=== PATIENT | male | born 1965 | race Caucasian/White ===

== ENCOUNTER 2024-01-17 15:19 | Emergency (ER) | payer OTHER, SELFPAY ==
--- NOTE | ~2024-01-17 | CT_ITS ---
EXAMINATION: CT ABDOMEN AND PELVIS WITH CONTRAST CLINICAL INFORMATION: Lower abdominal pain question diverticulitis COMPARISON: CT abdomen from 04/22/2010 TECHNIQUE: Multidetector volumetric images were obtained from the superior aspect of the liver through the pubic symphysis following administration 85 mL of Omnipaque 350 intravenous contrast. Sagittal and coronal reformatted images were obtained on the technologist's workstation. Oral contrast: No This CT examination was performed using dose optimization techniques as appropriate, variously including the following: *Automated exposure control *Adjustment of mA and/or kV according to patient size (this includes techniques or standardized protocols for targeted exams where dose is matched to indication/reason for exam; i.e. extremities or head) *Use of iterative reconstruction technique DLP: 460 mGy-cm FINDINGS: LUNG BASES: Bibasilar atelectasis. No pneumothorax. No large pleural effusion. Slight elevation right hemidiaphragm. LIVER, GALLBLADDER, AND BILIARY TREE: The liver is normal in size, shape, and attenuation. Hypodense focus adjacent to gallbladder fossa demonstrating fluid attenuation statistically representing cyst. No focal hepatic lesion or biliary ductal dilatation is present. The gallbladder is unremarkable with no evidence of radiopaque gallstones, gallbladder wall thickening, or obvious pericholecystic inflammatory changes. PANCREAS: Unremarkable. SPLEEN: Unremarkable. ADRENAL GLANDS: Unremarkable. KIDNEYS AND URETERS: Left-sided nephrolithiasis measuring up to 3 mm without hydronephrosis. No right-sided nephrolithiasis or hydronephrosis BLADDER: Unremarkable. GASTROINTESTINAL TRACT: Colonic diverticulosis with wall thickening and prominent pericolonic inflammatory changes and fluid involving the sigmoid colon compatible with diverticulitis. The small and large bowel are unremarkable. The appendix is unremarkable. ABDOMINAL WALL: No significant hernia is appreciated. LYMPH NODES: No enlarged lymph nodes per size criteria. VASCULAR: Abdominal aorta is nonaneurysmal. PELVIC VISCERA: Prostate measures 4.3 x 4.6 cm. OSSEOUS STRUCTURES: Multilevel degenerative changes of the thoracolumbar lumbosacral spine greatest at L2-L3. CT/CT abdomen pelvis w IV con IMPRESSION: 1. Colonic diverticulosis with wall thickening and prominent pericolonic inflammatory changes and fluid involving the sigmoid colon compatible with diverticulitis. 2. Left-sided nephrolithiasis measuring up to 3 mm without hydronephrosis. 3. Hypodense focus adjacent to gallbladder fossa demonstrating fluid attenuation statistically representing cyst.
[2024-01-17 15:21] VITALS: BP 120/79; PULSE 87; RESP 16; TEMP 36.9; O2SAT 97; BMI 28.2
--- NOTE | 2024-01-17 15:33 | ECG_ITS ---
Test Reason : ABDOMINAL PAIN Blood Pressure : / mmHG Vent. Rate : 091 BPM Atrial Rate : 091 BPM P-R Int : 150 ms QRS Dur : 082 ms QT Int : 350 ms P-R-T Axes : 041 011 024 degrees QTc Int : 430 ms Normal sinus rhythm Normal ECG No previous ECGs available Referred By: Dean Bynum Electronically Signed By:NAFISA TATUM MD
--- NOTE | 2024-01-17 15:35 | ED_ITS ---
HPI - General Adult General Chief complaint: Abdominal Pain Stated complaint: cramp, possible diverticulitis Time Seen by Provider: 01/17/24 16:12 Source: patient Mode of arrival: ambulatory Limitations: no limitations History of Present Illness ED Provider: jama CINTRON narrative: Patient is a kidney stone and diverticulitis past comes here for increased pain since emergency doctor in lower abdomen pain is more localized in the mid lower abdomen patient had a vasovagal syncope episode while going to the bathroom because of pain was very nauseated no fever no chills did not move his bowels today does feel hungry did not eat anything all day today Related Data Previous Rx's ?Medication ?Instructions ?Recorded ciprofloxacin HCl 500 mg tablet 500 mg PO BID #20 tabs 01/17/24 (Cipro) ibuprofen 600 mg tablet 600 mg PO Q6H PRN fever or pain 01/17/24 #30 tabs metronidazole 500 mg tablet 500 mg PO TID #30 tabs 01/17/24 Allergies Allergy/AdvReac Type Severity Reaction Status Date / Time erythromycin base Allergy Severe NAUSEA/VOMI Verified 01/17/24 15:27 [ERYTHROMYCIN BASE] TING Review of Systems 2 Review of Systems: Yes all other systems are reviewed and are negative [facility] Social History Social History Alcohol intake: current Alcohol intake frequency: a few times a week Alcohol type: hard liquor Smoked in Last 30 Days: No Use of substances other than those prescribed or required for medical reasons: No Advance Directives: No Advance Directives Information Provided: No Do you have a plan to hurt others: No Plan Physical Exam ED Vital Signs: Vital Signs - 24 hr 01/17/24 15:21 01/17/24 16:04 01/17/24 18:18 Temperature 98.5 F 98.1 F 98.3 F Pulse Rate 87 91 87 Respiratory Rate 16 16 16 Blood Pressure 120/79 130/87 133/78 Pulse Oximetry 97 97 97 Oxygen Delivery Method Room Air Room Air 01/17/24 19:19 01/17/24 19:33 Temperature 98.1 F 98.1 F Pulse Rate 84 84 Respiratory Rate 14 14 Blood Pressure 134/85 134/85 Pulse Oximetry 97 97 Oxygen Delivery Method Room Air Room Air BMI result Body Mass Index 28.2 Appearance: Alert. Oriented X3. No acute distress. Eyes: No pallor or icterus ENT: Pharynx normal. Oral Mucosa moist Neck: Normal inspection. Neck supple. CVS: Normal heart rate and rhythm. Pulses normal. Respiratory: No respiratory distress. Equal air entry bilateral, no wheezing/rales/rhonchi Abdomen: Soft , deep tenderness suprapubic area with guarding no rebound tenderness Bowel sounds are present, no mass palpable, no CVA tenderness Skin: Skin warm and dry. Normal skin color. Normal skin turgor. Extremities: No lower extremity edema. No calf tenderness Neuro: Oriented X 3. No motor deficit. No sensory deficit.No cerebellar signs , cranial nerves II-XII intact Course Course Course Narrative: RME: DOne by SUDHIR Bynum. Patient presents to ED for generalized abdominal cramping that is tender on palpation. Patient states history of diverticulitis and kidney stones. Patient states also syncopal episode. Patient present denies any chest pain shortness of breath is abdominal pain. Labs EKG ordered Medications Administered Discontinued Medications Generic Name Dose Route Start Last Admin Trade Name Freq PRN Reason Stop Dose Admin Sodium Chloride 1,000 mls @ 999 mls/hr 01/17/24 16:33 01/17/24 19:06 Ns IV 01/17/24 17:33 Infused .Q1H1M ONE Infusion Piperacillin Sod/Tazobactam 50 mls @ 100 mls/hr 01/17/24 17:07 01/17/24 18:30 Sod 3.375 gm/ Sodium Chloride IV 01/17/24 17:36 Infused ONCE ONE Infusion Iohexol 85 ml 01/17/24 18:25 01/17/24 18:25 Iohexol 350 Mg/Ml 100 Ml Infus..Btl IV 01/17/24 18:26 85 ml ONCE ONE Administration Morphine Sulfate 4 mg 01/17/24 16:33 01/17/24 17:08 Morphine Sulfate 4 Mg/Ml Cartridge IVPUSH 01/17/24 16:34 4 mg ONCE ONE Administration Protocol Ondansetron HCl 4 mg 01/17/24 16:34 01/17/24 17:08 Ondansetron Hcl 4 Mg/2 Ml Vial IVPUSH 01/17/24 16:35 4 mg ONCE ONE Administration Medical Decision Making Medical Decision Making MDM Narrative: Patient with left lower abdominal pain workup showed uncomplicated diverticulitis patient received Zosyn will discharge patient on Cipro and Flagyl advised to follow up as outpatient Differential Diagnosis Differential Diagnoses: The differential diagnosis associated with the presentation includes Diverticulitis/appendicitis/cystitis Admission/Observation Consideration of admission/observation: Escalation of care including admission/observation considered Lab Data MDM Lab Attestation statement: I reviewed the patient's lab results. 01/17/24 15:43 01/17/24 15:43 Labs: Lab Results 01/17/24 01/17/24 01/17/24 Range/Units 15:43 15:52 16:48 WBC 15.2 H (4.8-10.8) X10*3/uL RBC 5.00 (4.60-5.80) X10*6/uL Hgb 15.0 (14.0-18.0) g/dl Hct 43.4 (42.0-52.0) % MCV 86.8 (80.0-98.0) fL MCH 30.0 (27.0-33.0) pg MCHC 34.6 (31.0-36.0) g/dl RDW 13.0 (11.0-16.0) % Plt Count 253 (160-400) X10*3/uL MPV 9.4 (9.4-12.4) fL Immature Gran % (Auto) 0.3 (0.0-0.4) % Neut % (Auto) 79.8 H (45-73) % Lymph % (Auto) 10.0 L (20-40) % [place] % (Auto) 8.7 (2-11) % Eos % (Auto) 0.7 (0-4) % Baso % (Auto) 0.5 (0-2) % Lymph # (Auto) 1.5 (1.2-4.9) X10*3/uL [place] # (Auto) 1.3 H (0.1-1.2) X10*3/uL Eos # (Auto) 0.1 (0.0-0.4) X10*3/uL Baso # (Auto) 0.1 (0.0-0.2) X10*3/uL Abs Immat Gran (auto) 0.04 H (0.00-0.03) X10*3/uL Absolute Neuts (auto) 12.1 H (2.0-8.3) x10*3/uL Absolute Nucleated RBC 0.000 (0.0-0.012) X10*3/uL Nucleated RBC % (auto) 0.0 (0.0-0.2) /100WBC PT 12.4 (11.1-13.3) SEC INR 1.0 (0.9-1.1) APTT 31.7 (26.0-36.8) SEC Sodium 141 (135-145) mmol/L Potassium 4.4 (3.3-5.1) mmol/L Chloride 104 (96-108) mmol/L Carbon Dioxide 25 (22-29) mmol/L Anion Gap 16 (12-20) BUN 14 (9-16) mg/dL Creatinine 0.86 (0.5-1.4) mg/dL Estim Creat Clear Calc 94.6 Estimated GFR > 60 Random Glucose 110 (60-115) mg/dL Lactic Acid 1.2 (0.5-2.0) mmol/L Calcium 9.8 (8.4-10.2) mg/dL Total Bilirubin 1.2 H (0.0-1.0) mg/dL AST 20 (5-37) U/L ALT 28 (0-40) U/L Alkaline Phosphatase 126 H (39-117) U/L Troponin I High Sens < 2.7 (<3.5-35.0) ng/L Total Protein 7.8 (6.5-8.0) g/dL Albumin 4.4 (3.5-5.0) g/dL Urine Color Yellow Urine Appearance Clear Urine pH 7.0 (5.0-9.0) Ur Specific [place] <= 1.005 (1.005-1.025) Urine Protein Negative (Neg-Trace) mg/dL Urine Glucose (UA) Negative (Negative) mg/dL Urine Ketones Negative (Negative) mg/dL Urine Blood Trace H (Negative) Urine Nitrite Negative (Negative) Ur Leukocyte Esterase Negative (Negative) Urine RBC 0-2 (0-2) /HPF Urine WBC 0-5 (0-5) /HPF Ur Squamous Epith Cells 0-2 (0-2) /HPF Urine Bacteria None Seen (None Seen) Hyaline Casts 0-2 (0-2) /LPF 01/17/24 Range/Units 17:14 WBC (4.8-10.8) X10*3/uL RBC (4.60-5.80) X10*6/uL Hgb (14.0-18.0) g/dl Hct (42.0-52.0) % MCV (80.0-98.0) fL MCH (27.0-33.0) pg MCHC (31.0-36.0) g/dl RDW (11.0-16.0) % Plt Count (160-400) X10*3/uL MPV (9.4-12.4) fL Immature Gran % (Auto) (0.0-0.4) % Neut % (Auto) (45-73) % Lymph % (Auto) (20-40) % [place] % (Auto) (2-11) % Eos % (Auto) (0-4) % Baso % (Auto) (0-2) % Lymph # (Auto) (1.2-4.9) X10*3/uL [place] # (Auto) (0.1-1.2) X10*3/uL Eos # (Auto) (0.0-0.4) X10*3/uL Baso # (Auto) (0.0-0.2) X10*3/uL Abs Immat Gran (auto) (0.00-0.03) X10*3/uL Absolute Neuts (auto) (2.0-8.3) x10*3/uL Absolute Nucleated RBC (0.0-0.012) X10*3/uL Nucleated RBC % (auto) (0.0-0.2) /100WBC PT (11.1-13.3) SEC INR (0.9-1.1) APTT (26.0-36.8) SEC Sodium (135-145) mmol/L Potassium (3.3-5.1) mmol/L Chloride (96-108) mmol/L Carbon Dioxide (22-29) mmol/L Anion Gap (12-20) BUN (9-16) mg/dL Creatinine (0.5-1.4) mg/dL Estim Creat Clear Calc Estimated GFR Random Glucose (60-115) mg/dL Lactic Acid 0.2 L (0.5-2.0) mmol/L Calcium (8.4-10.2) mg/dL Total Bilirubin (0.0-1.0) mg/dL AST (5-37) U/L ALT (0-40) U/L Alkaline Phosphatase (39-117) U/L Troponin I High Sens (<3.5-35.0) ng/L Total Protein (6.5-8.0) g/dL Albumin (3.5-5.0) g/dL Urine Color Urine Appearance Urine pH (5.0-9.0) Ur Specific [place] (1.005-1.025) Urine Protein (Neg-Trace) mg/dL Urine Glucose (UA) (Negative) mg/dL Urine Ketones (Negative) mg/dL Urine Blood (Negative) Urine Nitrite (Negative) Ur Leukocyte Esterase (Negative) Urine RBC (0-2) /HPF Urine WBC (0-5) /HPF Ur Squamous Epith Cells (0-2) /HPF Urine Bacteria (None Seen) Hyaline Casts (0-2) /LPF Independent Interpretation I performed an independent interpretation of an: CT Scan Interpretation: [place] [id number] CT Scan Report Signed Patient: Adrian Hadley MR#: [id number] : 1965 Acct:[id number] Age/Sex: 58 / M ADM Date: 01/17/24 Loc: .ED Attending Dr: Ordering Physician: Howie Emery MD Date of Service: 01/17/24 Procedure(s): CT abdomen pelvis w IV con Accession Number(s): [id number] cc: Jim Nicole III, MD; Howie Emery MD~ EXAMINATION: CT ABDOMEN AND PELVIS WITH CONTRAST CLINICAL INFORMATION: Lower abdominal pain question diverticulitis COMPARISON: CT abdomen from 04/22/2010 TECHNIQUE: Multidetector volumetric images were obtained from the superior aspect of the liver through the pubic symphysis following administration 85 mL of Omnipaque 350 intravenous contrast. Sagittal and coronal reformatted images were obtained on the technologist's workstation. Oral contrast: No This CT examination was performed using dose optimization techniques as appropriate, variously including the following: *Automated exposure control *Adjustment of mA and/or kV according to patient size (this includes techniques or standardized protocols for targeted exams where dose is matched to indication/reason for exam; i.e. extremities or head) *Use of iterative reconstruction technique DLP: 460 mGy-cm FINDINGS: LUNG BASES: Bibasilar atelectasis. No pneumothorax. No large pleural effusion. Slight elevation right hemidiaphragm. LIVER, GALLBLADDER, AND BILIARY TREE: The liver is normal in size, shape, and attenuation. Hypodense focus adjacent to gallbladder fossa demonstrating fluid attenuation statistically representing cyst. No focal hepatic lesion or biliary ductal dilatation is present. The gallbladder is unremarkable with no evidence of radiopaque gallstones, gallbladder wall thickening, or obvious pericholecystic inflammatory changes. PANCREAS: Unremarkable. SPLEEN: Unremarkable. ADRENAL GLANDS: Unremarkable. KIDNEYS AND URETERS: Left-sided nephrolithiasis measuring up to 3 mm without hydronephrosis. No right-sided nephrolithiasis or hydronephrosis BLADDER: Unremarkable. GASTROINTESTINAL TRACT: Colonic diverticulosis with wall thickening and prominent pericolonic inflammatory changes and fluid involving the sigmoid colon compatible with diverticulitis. The small and large bowel are unremarkable. The appendix is unremarkable. ABDOMINAL WALL: No significant hernia is appreciated. LYMPH NODES: No enlarged lymph nodes per size criteria. VASCULAR: Abdominal aorta is nonaneurysmal. PELVIC VISCERA: Prostate measures 4.3 x 4.6 cm. OSSEOUS STRUCTURES: Multilevel degenerative changes of the thoracolumbar lumbosacral spine greatest at L2-L3. CT/CT abdomen pelvis w IV con IMPRESSION: 1. Colonic diverticulosis with wall thickening and prominent pericolonic inflammatory changes and fluid involving the sigmoid colon compatible with diverticulitis. 2. Left-sided nephrolithiasis measuring up to 3 mm without hydronephrosis. 3. Hypodense focus adjacent to gallbladder fossa demonstrating fluid attenuation statistically representing cyst. Radiology Impression Discussion of test interpretation with radiology: I have reviewed the radiologist's reading. Discharge Plan Discharge Clinical Impression: Diverticulitis Patient Disposition: Home, Self-Care Instructions: Diverticulitis (ED) Additional Instructions: Clear liquids advanced slowly as tolerated Antibiotic as prescribed Take ibuprofen for pain Report to the ER if worsening of the pain/fever/blood in his stool Follow up with PCP/quality assurance consultant Prescriptions: New ciprofloxacin HCl [Cipro] 500 mg tablet 500 mg PO BID Qty: 20 0RF metronidazole 500 mg tablet 500 mg PO TID Qty: 30 0RF ibuprofen 600 mg tablet 600 mg PO Q6H PRN (Reason: fever or pain) Qty: 30 0RF Interventions: ED Discharge Assessment Last Done: 01/17/24 19:33 Discharge Date/Time: 01/17/24 19:34 Print Language: [place]
[2024-01-17 15:57] LABS: MANUAL DIFF FLAG NO
[2024-01-17 16:04] VITALS: BP 130/87; PULSE 91; RESP 16; TEMP 36.7; O2SAT 97
[2024-01-17 16:04] LABS: Basophils Absolute Auto 0.1 X10*3/uL (0.0-0.2); Basophils Percent Auto 0.5 % (0-2); Eosinophils Absolute Auto 0.1 X10*3/uL (0.0-0.4); Eosinophils Percent Auto 0.7 % (0-4); Hematocrit 43.4 % (42.0-52.0); Imm Gran Abs Auto 0.04 X10*3/uL (0.00-0.03); Imm Gran Pct Auto 0.3 % (0.0-0.4); Lymphocytes Absolute Auto 1.5 X10*3/uL (1.2-4.9); Mean Corpuscular HGB Conc 34.6 g/dl (31.0-36.0); Mean Corpuscular Volume 86.8 fL (80.0-98.0); Mean Platelet Volume 9.4 fL (9.4-12.4); Monocytes Absolute Auto 1.3 X10*3/uL (0.1-1.2); Monocytes Percent Auto 8.7 % (2-11); Neutrophils Absolute Auto 12.1 x10*3/uL (2.0-8.3); Neutrophils Percent Auto 79.8 % (45-73); Platelet Count 253 X10*3/uL (160-400); White Blood Count 15.2 X10*3/uL (4.8-10.8)
[2024-01-17 16:07] LABS: Appearance Urine Clear; Color Urine Yellow; Glucose Urine UA Negative (Negative); Leukocyte Esterase Urine Negative (Negative); Nitrite Urine Negative (Negative); Specific Gravity - Urine <= 1.005 (1.005-1.025); UMIC TRIGGER UACC YES; Urine Blood Trace (Negative); Urine Ketones Negative (Negative); Urine Protein Negative (Neg-Trace)
[2024-01-17 16:09] LABS: Prothrombin Time 12.4 SEC (11.1-13.3)
[2024-01-17 16:12] LABS: Partial Thromboplastin Time 31.7 SEC (26.0-36.8)
[2024-01-17 16:14] LABS: Alanine Aminotransferase 28 U/L (0-40); Albumin Level 4.4 g/dL (3.5-5.0); Alkaline Phosphatase 126 U/L (39-117); Anion Gap 16 (12-20); Aspartate Amino Transferase 20 U/L (5-37); Bilirubin Total 1.2 mg/dL (0.0-1.0); Blood Urea Nitrogen 14 mg/dL (9-16); Calcium 9.8 mg/dL (8.4-10.2); Carbon Dioxide 25 mmol/L (22-29); Chloride 104 mmol/L (96-108); Creatinine Clr Calc Pharmacy 94.6; Estimated Glomerular Filt Rate > 60; Glucose Random 110 mg/dL (60-115); Potassium 4.4 mmol/L (3.3-5.1); Sodium 141 mmol/L (135-145); Total Protein 7.8 g/dL (6.5-8.0)
[2024-01-17 16:14] LABS: Bacteria Urine None Seen (None Seen); Hyaline Casts Urine 0-2 /LPF (0-2); RBC Urine 0-2 /HPF (0-2); Squamous Epithelial Cell Urine 0-2 /HPF (0-2); WBC Urine 0-5 /HPF (0-5)
[2024-01-17 16:21] LABS: Troponin-I High Sensitivity < 2.7 ng/L (<3.5-35.0)
[2024-01-17 17:04] LABS: Lactic Acid 1.2 mmol/L (0.5-2.0)
[2024-01-17] MEDS: Morphine Sulfate 4 MG/ML CARTRIDGE IVPUSH (17:08)
[2024-01-17] MEDS: ondansetron HCL 4 MG/2 ML VIAL IVPUSH (17:08)
[2024-01-17] MEDS: 0.9 % Sodium Chloride 1,000 ML 999 ML IV (17:19)
[2024-01-17] MEDS: Piperacillin Sodium/Tazobactam 3.375 GM in 0.9 % Sodium Chloride 50 ML IV (17:19)
[2024-01-17 17:29] LABS: Lactic Acid 0.2 mmol/L (0.5-2.0)
[2024-01-17 18:18] VITALS: BP 133/78; PULSE 87; RESP 16; TEMP 36.8; O2SAT 97
[2024-01-17] MEDS: iohexoL 350 MG/ML 100 ML INFUS..BTL 85 ML IV (18:25)
[2024-01-17 19:19] VITALS: BP 134/85; PULSE 84; RESP 14; TEMP 36.7; O2SAT 97
[2024-01-17 19:33] VITALS: BP 134/85; PULSE 84; RESP 14; TEMP 36.7; O2SAT 97
== END 2024-01-17 19:34 | disposition home or self-care (01) ==
PROVIDERS: Physician Assistant; Emergency Provider Internal Medicine; PCP Internal Medicine
DX: R10.30 Lower abdominal pain, unspecified (principal); K57.32 Diverticulitis of large intestine without perforation or abscess without bleeding
CPT/HCPCS: 36415; 74177; 80053; 81001; 81003; 83605; 84484; 85025; 85610; 85730; 93005; 96361; 96374; 96375; 99284; 99285; J2270; J2405; J2543; Q9967

== ENCOUNTER → 2024-01-17 15:33 | Outpatient (BNV) | payer OTHER, SELFPAY | PROVIDERS: Emergency Provider Internal Medicine; PCP Internal Medicine; Visit Provider Internal Medicine Cardiovascular Disease | DX: R10.9 Unspecified abdominal pain (principal) | CPT/HCPCS: 93010 ==

== ENCOUNTER 2025-03-14 16:14 | Outpatient (AMB) | payer OTHER, SELFPAY ==
--- OUTSIDE RECORDS SUMMARY | 2025-03-14 17:37 | XMS_ITS | Clinical Summary ---
Author Organization [facility] [address] [facility] Address [address] [place] [address] Phone Care Team Providers Care Mat Weaver Name Role Phone Darryl Nina MD Primary Care Provider Allergies Active Allergy Reactions Criticality Noted Date Comments Erythromycin Nausea And Vomiting 11/30/2005 Sulfamethoxazole-Trimet hoprim Medium 12/21/2012 Other Reaction(s): Hives/Urticaria Vs. Sunscreen Rxn? Medications omeprazole (PriLOSEC) [address] capsule TAKE 1 CAPSULE BY MOUTH DAILY TAKE 20 MINUTES BEFORE BREAKFAST ON AN EMPTY STOMACH 0 Active fexofenadine (STEPHANIE) 180 mg tablet Take 1 Tab by mouth daily. 8 Active UNABLE TO FIND Inject as directed once a week. Active multivitamin with minerals tablet Take 1 tablet by mouth 1 (one) time each day. Active Active Problems Problem Noted Date Diagnosed Date Family history of prostate cancer 06/28/2024 Assessment & Plan (06/28/2024 8:55 AM EST): Follows with urology and up-to-date with prostate exam and PSA. Diverticulosis 02/09/2024 Elevated bilirubin 02/09/2024 Leukocytosis 02/09/2024 Nephrolithiasis 11/16/2017 Overview (05/12/2024): Left renal calculus, ultrasound 09/09/2017 Hyperlipidemia 06/25/2016 Overview (05/12/2024): Cholesterol 242, 06/25/2016 IFG (impaired fasting glucose) 06/25/2016 Overview (05/12/2024): Glucose 107, 06/25/2016 Eosinophilic esophagitis 08/21/2006 Overview (05/12/2024): EGD plus esophageal biopsies, 18 August 2006, consistent with eosinophilic esophagitis. Carpal tunnel syndrome 05/28/2006 Ulnar nerve compression 05/28/2006 Overview (05/12/2024): ulnar nerve wrist compression Allergic rhinitis 11/30/2005 Overview (05/12/2024): cause unspecified Chronic diarrhea 11/30/2005 Overview (05/12/2024): Colonoscopy, colonoscopic biopsies, EGD, duodenal biopsies, all negative/normal 7.11.00. chronic minor hematochezia. Immunizations Name Administration Dates Next Due COVID-19 (Moderna/Spikevax) 12yo and older 07/09 Influenza trivalent, MDCK, 0 .5mL, with preservative (Flucelvax) 6mo and older 04/26/2024 Influenza, Unspecified 05/03/2021 Pfizer (ages 12 & older) Bivalent, COVID-19 06/26 Pfizer SARS-CoV-2 COVID-19, mRNA, LNP-S, preservative free 07/24/2021,12/02/2020,11/11/2020 Td Tetanus diptheria (Tdvax) 7yo and older 02/26 Td, Unspecified 04/18/2001 Tdap Tetanus diptheria acell ular pertussis (Boostrix; Adacel) 7yo and older 11/25/2011 Zoster recombinant (Shingrix ) 19yo and older 12/04/2023,09/29/2023 Surgical History Surgery Date Site/Laterality Comments ESOPHAGOGASTRODUODENOSCOPY 08/18/2006 PROCEDURE: ID EGD TRANSORAL BIOPSY SINGLE/MULTIPLE; COMMENT: eosinophilic esophagitis COLONOSCOPY 02/04/2000 PROCEDURE: HISTORICAL COLONOSCOPY; COMMENT: negative ESOPHAGOGASTRODUODENOSCOPY 02/04/2000 PROCEDURE: ID EGD TRANSORAL BIOPSY SINGLE/MULTIPLE; COMMENT: duodenal bx wnl MULTIPLE TOOTH EXTRACTIONS PROCEDURE: HISTORICAL DENTAL EXTRACTION COLONOSCOPY 05/24/2010 PROCEDURE: HISTORICAL COLONOSCOPY; COMMENT: Normal OTHER SURGICAL HISTORY 09/25/2011 PROCEDURE: ID ESOPHAGOSCOPY FLEXIBLE TRANSORAL DIAGNOSTIC; COMMENT: EOE and mild erosive esophagitis at the EGJ. OTHER SURGICAL HISTORY 09/25/2011 PROCEDURE: ID DILATION ESOPH UNGUIDED SOUND/BOUGIE 1/MULT PASS; COMMENT: 40 Fr Brooks OTHER SURGICAL HISTORY 07/27/2015 PROCEDURE: ---- OTHER ----; COMMENT: deviated septum NASAL SEPTUM SURGERY PROCEDURE: ID SEPTOPLASTY/SUBMUCOUS RESECJ W/WO CARTILAGE GRF; COMMENT: 2017 Medical History Medical History Date Comments Allergic rhinitis, cause unspecified 11/30/2005 DX:Allergic rhinitis, cause unspecified Diarrhea 11/30/2005 DX:Diarrhea Family history of colonic polyps 08/05/2006 DX:Family history of colonic polyps; COMMENT: father with diagnosis of colonic polyps approximately age 60 or older. Eosinophilic esophagitis 08/21/2006 DX:Eosi nophilic esophagitis; COMMENT: EGD plus esophageal biopsies, 18 August 2006, consistent with eosinophilic esophagitis. Family History Medical History Relation Name Comments Heart attack Aunt - age 73; heart attack Colon polyps Father dx at age > 60; 4 benign polyps Hypertension Father Other cancer Father skin Prostate cancer Father also 4 benig n colon polyps Other: Other Maternal Grandfather ? cause of at 47; surg complication Stroke Maternal Grandmother in her 80s Stroke Mother Uterine cancer Mother uterine cance r at 47 Lymphoma Other 1 gr aunt Colon cancer Other 2 2nd cousin Stomach cancer Paternal Grandfather at 57 of stomach cancer Alzheimer's disease Paternal Grandmother in her 80s; heart attack at 86 Alzheimer's disease Uncle 1 paternal uncle # 1 -Alzheimer's Prostate cancer Uncle 2 paternal unc le #1 Relation Name Status Comments Aunt Father Maternal Grandfather Maternal Grandmother Mother Other 1 Other 2 Paternal Grandfather Paternal Grandmother Uncle 1 Uncle 2 Social History Tobacco Use Types Packs/Day Years Used Date Smoking Tobacco: Never Smokeless Tobacco: Never Alcohol Use Standard Drinks/Week Comments Yes 4 (1 standard drink = 0.6 oz pur e alcohol) 4 bourbons or beer 4 weekly Sex and Gender Information Value Date Recorded Sex Assigned at Not on file Legal Sex Male 3:44 PM EST Gender Identity Not on file Sexual Orientation Not on file Obstetrics History Last Filed Vital Signs Vital Sign Reading Time Taken Comments Blood Pressure 112/70 06/28/2024 8:20 AM EST Pulse 82 06/28/2024 8:20 AM EST Temperature 36.5 C (97.7 F) 06/28/2024 8:20 AM EST Respiratory Rate 14 06/28/2024 8:20 AM EST Oxygen Saturation 98% 06/28/2024 8:20 AM EST Inhaled Oxygen Concentration - - Weight 74.8 kg (164 lb 12.8 oz) 06/28/2024 8:20 AM EST Height 167.6 cm (5' 6 ) 06/28/2024 8:20 AM EST Body Mass Index 26.6 06/28/2024 8:20 AM EST Plan of Treatment Health Maintenance Due Date Last Done Comments Pneumococcal Vaccine: 50+ Years (1 of 1 - PCV) 2014 Social Influencers of Health Screening 06/25/2022 COVID-19 Vaccine ( season) 2024 09/29/2023, 07/09/2022, 07/09/2022, Additional history exists Depression Screening 07/27/2024 Influenza Vaccine (#1) 2025 , 05/21/2022, 05/03/2021 Cholesterol Screening (Lipid Panel) 06/28/2029 06/28/2024, 09/12/2021 Colorectal Cancer Screening: Colonoscopy 11/15/2031 11/14/2021 DTaP,Tdap,and Td Vaccines (4 - Td or Tdap) 02/27/2032 02/26/2022, 11/25/2011, 04/18/2001 RSV Immunization Adult Patients (1 - 1-dose 75+ series) 2039 HIV Screening Completed 08/12/2010 Hepatitis C Screening Completed 01/08/2013 Zoster Vaccines Completed 12/04/2023, 09/29/2023 HIB Vaccines Aged Out No longer eligi ble based on patient's age to complete this topic HPV Vaccines Aged Out No longer eligi ble based on patient's age to complete this topic Hepatitis A Vaccines Aged Out No long er eligible based on patient's age to complete this topic Hepatitis B Vaccines Aged Out No long er eligible based on patient's age to complete this topic IPV Vaccines Aged Out No longer eligi ble based on patient's age to complete this topic MMR Vaccines Aged Out No longer eligi ble based on patient's age to complete this topic Meningococcal ACWY Vaccine Aged Out N o longer eligible based on patient's age to complete this topic Meningococcal B Vaccine Aged Out No l onger eligible based on patient's age to complete this topic RSV Immunization Patients Under 20 months Aged Out No longer eligible based on patient's age to complete this topic Varicella Vaccines Aged Out No longer eligible based on patient's age to complete this topic Procedures Procedure Name Priority Date/Time Associated Diagnosis Comments LIPID PANEL WITH REFLEX TO DIRECT LDL Routine 06/28/2024 9:24 AM EST Routine general medical examination at a health care facility COLONOSCOPY Routine 11/14/2021 HEPATITIS C SCREENING Routine 01/08/2013 HIV SCREENING Routine 08/12/2010 from Last 3 Months or Most Recently Relevant to Health Maintenance Results * (ABNORMAL) Lipid panel with reflex to direct LDL (06/28/2024 9:24 AM EST) Cholesterol 238(H) 0 - 200 mg/dL LAB CHEMISTRY METHOD 06/28/2024 12:55 PM EST [facility] Triglycerides 176(H) 0 - 150 mg/dL LAB CHEMISTRY METHOD 06/28/2024 12:55 PM EST [facility] HDL 46 >=40 mg/dL LAB CHEMISTRY METHOD 06/28/2024 12:55 PM EST [facility] LDL Calculated 157(H) 0 - 100 mg/dL LAB CHEMISTRY METHOD 06/28/2024 12:55 PM EST [facility] VLDL Cholesterol Emre 35.2 mg/dL LAB CHEMISTRY METHOD 06/28/2024 12:55 PM EST [facility] Non HDL Chol. (LDL+VLDL) 192(H) <145 mg/dL LAB CHEMISTRY METHOD 06/28/2024 12:55 PM EST [facility] Chol/HDL Ratio 5.2(H) 0.0 - 4.4 LAB CHEMISTRY METHOD 06/28/2024 12:55 PM EST [facility] Blood Venous blood specimen / Unknown Venipuncture / Unknown 06/28/2024 9:24 AM EST 06/28/2024 9:24 AM EST Robert PEGUERO LAB BLOOD ORDERABLES Fin al Result [facility] [address] [place] [address], * Colonoscopy (11/14/2021) Pathologist [facility] Colonoscopy No interpretation , Abstracted Anatomical Region Laterality Modality Other Historical Provider HEALTH MAINTENANCE Final Result * Hepatitis C Screening (01/08/2013) [facility] Hepatitis C Screening Abstracted [facility] Provider HEALTH MAINTENANCE Final Result * HIV Screening (08/12/2010) [facility] HIV Screening Abstracted [facility] Provider HEALTH MAINTENANCE Final Result from Last 3 Months or Most Recently Relevant to Health Maintenance Insurance [employer] Care Teams Mat Weaver Relationship Specialty Start Date End Date Darryl Nina MD [address] [place] [address] PCP - General 01/18/24
--- OUTSIDE RECORDS SUMMARY | 2025-03-14 17:37 | XMS_ITS | Clinical Summary ---
Author Organization [employer] Address [address] [place] [address] [address] [place] [address] Care Team Providers Care License Registration Examiner Name Role Phone Unavailable Primary Care Provider Unavailabl e Social History Tobacco Use Types Packs/Day Years Used Date Smoking Tobacco: Never Assessed Sex and Gender Information Value Date Recorded Sex Assigned at Male 05/26/2022 10:24 AM EDT Legal Sex Male 10:24 AM EDT Gender Identity Male 05/26/2022 10:24 AM EDT Sexual Orientation Choose not to disclose 2021 10:24 AM EDT Plan of Treatment Health Maintenance Due Date Last Done Comments CT Colonography 1964 Colonoscopy 1964 Colorectal Cancer Screening 1964 Depression Screening 1964 FIT DNA/Cologuard 1964 FIT 1964 FOBT 1964 Lipid Panel 1964 Sigmoidoscopy 1964 Disability Screening 1964 Alcohol/Substance Use Screening 1976 Tobacco Screening 1976 DTaP/Tdap/Td Vaccines (1 - Tdap) 1983 Pneumococcal Vaccine: 50+ Ye ars (1 of 1 - PCV) 2014 Zoster Vaccines (1 of 2) 2014 COVID-19 Vaccine ( - 2023-2 5 season) 2024 Influenza Vaccine (#1) 2025 RSV Patients and Pa tients Aged 60 years or older (1 - 1-dose 75+ series) 2039 HIB Vaccines Aged Out No longer eligi [...] patient's age to complete this topic Meningococcal Vaccine Aged Out No peyman priyank eligible based on patient's age to complete this topic RSV under 20 months Aged Out No longe r eligible based on patient's age to complete this topic Rotavirus Vaccines Aged Out No longer eligible based on patient's age to complete this topic
== END 2025-03-14 16:23 | disposition home or self-care (01) ==
LOC: HO.HMGAL 16:14
PROVIDERS: PCP Internal Medicine; Visit Provider Registered Nurse Emergency
DX: J30.89 Other allergic rhinitis (principal)
CPT/HCPCS: 95117; 95165

== ENCOUNTER 2025-04-12 16:18 | Outpatient (AMB) | payer OTHER, SELFPAY ==
--- OUTSIDE RECORDS SUMMARY | 2025-04-12 19:18 | XMS_ITS | Encounter Summary ---
Author Organization [employer] Address [address] [facility] [address]t [place] [address] Care Team Providers Care Medical Sales Associate Name Role Phone Unavailable Primary Care Provider Unavailabl e Encounter Details Date Type Department Care Team (Latest Contact Info) Description 07/14/2019 Abstract C CONVERSIONS Dental, Provider, DDS Social History Tobacco Use Types Packs/Day Years Used Date Smoking Tobacco: Never Assessed Sex and Gender Information Value Date Recorded Sex Assigned at Male 05/26/2022 10:24 AM EDT Legal Sex Male 10:24 AM EDT Gender Identity Male 05/26/2022 10:24 AM EDT Sexual Orientation Choose not to disclose 2021 10:24 AM EDT documented as of this encounter Plan of Treatment Not on file documented as of this encounter Visit Diagnoses Not on filedocumented in this encounter
--- OUTSIDE RECORDS SUMMARY | 2025-04-12 19:18 | XMS_ITS | Clinical Summary ---
Author Organization [employer] Address [address] [place] [address] [address] [place] [address] Care Team Providers Care Director Of Cloud Services Name Role Phone Unavailable Primary Care Provider [...] Vaccines (1 of 2) 2014 COVID-19 Vaccine (1 - 2023-2 5 season) 2025 Influenza Vaccine (#1) 2025 RSV Patients and [...]
== END 2025-04-12 16:19 | disposition home or self-care (01) ==
LOC: HO.HMGAL 16:18
PROVIDERS: PCP Internal Medicine; Visit Provider Registered Nurse Emergency
DX: J30.89 Other allergic rhinitis (principal)
CPT/HCPCS: 95117; 95165

== ENCOUNTER 2025-05-10 16:25 | Outpatient (AMB) | payer OTHER, SELFPAY ==
--- OUTSIDE RECORDS SUMMARY | 2025-05-10 19:28 | XMS_ITS | Clinical Summary ---
Author Organization [email or web address] Address [address] [place] [address] [address] [place] [address] Care Team Providers Care Dry Yard Worker Name Role Phone Unavailable Primary Care Provider [...]
--- OUTSIDE RECORDS SUMMARY | 2025-05-10 19:28 | XMS_ITS | Encounter Summary ---
Author Organization [employer] Address [address] [facility] 7[address] [place] [address] Care Team Providers Care Middle School Football Coach Name Role Phone Unavailable Primary Care Provider [...]
== END 2025-05-10 16:25 | disposition home or self-care (01) ==
LOC: HO.HMGAL 16:25
PROVIDERS: PCP Internal Medicine; Visit Provider Registered Nurse Emergency
DX: J30.89 Other allergic rhinitis (principal)
CPT/HCPCS: 95117; 95165

== ENCOUNTER 2025-06-05 09:57 | Outpatient (AMB) | payer OTHER, SELFPAY ==
--- OUTSIDE RECORDS SUMMARY | 2025-06-05 11:24 | XMS_ITS | Clinical Summary ---
Author Organization [facility] [address] [facility] Address [address] [place] [address] Phone Care Team Providers Care Guard Range Name Role Phone Darryl Nina MD Primary [...] all negative/normal 7.11.00. chronic minor hematochezia. Immunizations Immunization Administration Dates Next Due COVID-19 (Moderna/Spikevax) 12yo [...] Surgery Date Site/Laterality Comments ESOPHAGOGASTRODUODENOSCOPY 08/18/2006 PROCEDURE: [place] EGD TRANSORAL BIOPSY SINGLE/MULTIPLE; COMMENT: eosinophilic esophagitis COLONOSCOPY 02/04/2000 PROCEDURE: HISTORICAL COLONOSCOPY; COMMENT: negative ESOPHAGOGASTRODUODENOSCOPY 02/04/2000 PROCEDURE: [facility] EGD TRANSORAL BIOPSY SINGLE/MULTIPLE; COMMENT: duodenal bx wnl MULTIPLE TOOTH EXTRACTIONS PROCEDURE: HISTORICAL DENTAL EXTRACTION COLONOSCOPY 05/24/2010 PROCEDURE: HISTORICAL COLONOSCOPY; COMMENT: Normal OTHER SURGICAL HISTORY 09/25/2011 PROCEDURE: [facility] ESOPHAGOSCOPY FLEXIBLE TRANSORAL DIAGNOSTIC; COMMENT: EOE and mild erosive esophagitis at the EGJ. OTHER SURGICAL HISTORY 09/25/2011 PROCEDURE: [facility] DILATION ESOPH UNGUIDED SOUND/BOUGIE 1/MULT PASS; COMMENT: 40 Fr Brooks OTHER SURGICAL HISTORY 07/27/2015 PROCEDURE: ---- OTHER ----; COMMENT: deviated septum NASAL SEPTUM SURGERY PROCEDURE: [facility] SEPTOPLASTY/SUBMUCOUS RESECJ W/WO CARTILAGE GRF; COMMENT: 2017 [...] 2014 Social Influencers of Health Screening 06/25/2022 Depression Screening 07/27/2024 COVID-19 Vaccine ( season) 2025 09/29/2023, 07/09/2022, 07/09/2022, Additional history exists Influenza Vaccine (#1) 2025 , 05/21/2022, 05/03/2021 [...] LAB CHEMISTRY METHOD 06/28/2024 12:55 PM EST [facility] Triglycerides 176(H) 0 - 150 mg/dL LAB CHEMISTRY METHOD 06/28/2024 12:55 PM EST [facility] HDL 46 >=40 mg/dL LAB CHEMISTRY METHOD 06/28/2024 12:55 PM EST [facility] LDL Calculated 157(H) 0 - 100 mg/dL LAB CHEMISTRY METHOD 06/28/2024 12:55 PM EST [facility] VLDL Cholesterol Emre 35.2 mg/dL LAB CHEMISTRY METHOD 06/28/2024 12:55 PM EST [facility] Non HDL Chol. (LDL+VLDL) 192(H) <145 mg/dL LAB CHEMISTRY METHOD 06/28/2024 12:55 PM EST [facility] Chol/HDL Ratio 5.2(H) 0.0 - 4.4 LAB CHEMISTRY METHOD 06/28/2024 12:55 PM EST [facility] Blood Venous blood specimen / Unknown Venipuncture / Unknown 06/28/2024 9:24 AM EST 06/28/2024 9:24 AM EST Robert PEGUERO LAB BLOOD ORDERABLES Fin al Result [facility] [address] [place] [address], * Colonoscopy (11/14/2021) Pathologist [facility] Colonoscopy No interpretation , Abstracted Anatomical Region Laterality Modality Other Historical Provider HEALTH MAINTENANCE Final Result * Hepatitis C Screening (01/08/2013) [facility] Hepatitis C Screening Abstracted [facility] Provider HEALTH MAINTENANCE Final Result * HIV Screening (08/12/2010) [facility] HIV Screening Abstracted [facility] Provider HEALTH MAINTENANCE Final Result from Last 3 Months or Most Recently Relevant to Health Maintenance Insurance [employer] Care Teams Guard Range Relationship Specialty Start Date End Date Darryl Nina MD [address] [place] [address] PCP - General 01/18/24
--- OUTSIDE RECORDS SUMMARY | 2025-06-05 11:24 | XMS_ITS | Clinical Summary ---
Author Organization [employer] Address [address] [place] [address] [address] [place] [address] Care Team Providers Care Signals Officer Name Role Phone Unavailable Primary Care Provider [...]
--- OUTSIDE RECORDS SUMMARY | 2025-06-05 11:24 | XMS_ITS | Encounter Summary ---
Author Organization [employer] Address [address] [facility] 7t [place] [address] Care Team Providers Care Orthopedic Technician Name Role Phone Unavailable Primary Care Provider [...]
== END 2025-06-05 09:57 | disposition home or self-care (01) ==
LOC: HO.HMGAL 09:57
PROVIDERS: PCP Internal Medicine; Visit Provider Registered Nurse Emergency
DX: J30.89 Other allergic rhinitis (principal)
CPT/HCPCS: 95117; 95165

== ENCOUNTER 2025-07-05 16:05 | Outpatient (AMB) | payer OTHER, SELFPAY ==
--- OUTSIDE RECORDS SUMMARY | 2025-07-06 00:47 | XMS_ITS | Clinical Summary ---
Author Organization [facility] [address] [facility] Address [address] [place] [address] Phone Care Team Providers Care All Around Gear Machine Operator Name Role Phone Darryl Nina MD Primary [...] on file Sexual Orientation Not on file Last Filed Vital Signs Vital Sign Reading [...] LAB CHEMISTRY METHOD 06/28/2024 12:55 PM EST [facility] Triglycerides 176(H) 0 - 150 mg/dL LAB CHEMISTRY METHOD 06/28/2024 12:55 PM EST [facility] HDL 46 >=40 mg/dL LAB CHEMISTRY METHOD 06/28/2024 12:55 PM EST [facility] LDL Calculated 157(H) 0 - 100 mg/dL LAB CHEMISTRY METHOD 06/28/2024 12:55 PM EST [facility] VLDL Cholesterol Emre 35.2 mg/dL LAB CHEMISTRY METHOD 06/28/2024 12:55 PM EST [facility] Non HDL Chol. (LDL+VLDL) 192(H) <145 mg/dL LAB CHEMISTRY METHOD 06/28/2024 12:55 PM EST [facility] Chol/HDL Ratio 5.2(H) 0.0 - 4.4 LAB CHEMISTRY METHOD 06/28/2024 12:55 PM EST [facility] Blood Venous blood specimen / Unknown Venipuncture / Unknown 06/28/2024 9:24 AM EST 06/28/2024 9:24 AM EST us Robert PEGUERO LAB BLOOD ORDERABLES Fin al Result [facility] [address] [place] [address], * Colonoscopy (11/14/2021) Pathologist [facility] Colonoscopy No interpretation , Abstracted Anatomical Region Laterality Modality Other Historical Provider HEALTH MAINTENANCE Final Result * Hepatitis C Screening (01/08/2013) [facility] Hepatitis C Screening Abstracted [facility] Provider HEALTH MAINTENANCE Final Result * HIV Screening (08/12/2010) [facility] HIV Screening Abstracted [facility] Provider HEALTH MAINTENANCE Final Result from Last 3 Months or Most Recently Relevant to Health Maintenance Insurance [employer] Care Teams All Around Gear Machine Operator Relationship Specialty Start Date End Date Darryl Nina MD [address] [place] [address] PCP - General 01/18/24
--- OUTSIDE RECORDS SUMMARY | 2025-07-06 00:47 | XMS_ITS | Clinical Summary ---
Author Organization [employer] Address [address] [place] [address] [address] [place] [address] Care Team Providers Care Human Services Worker Name Role Phone Unavailable Primary Care [...] of 2) 2014 COVID-19 Vaccine ( - 2024-2 6 season) 2025 Influenza Vaccine (#1) 2025 RSV [...]
--- OUTSIDE RECORDS SUMMARY | 2025-07-06 00:47 | XMS_ITS | Encounter Summary ---
Author Organization [employer] Address [address] [facility] [address]t [place] [address] Care Team Providers Care Floor Covering Layer Name Role Phone Unavailable Primary Care Provider [...]
== END 2025-07-05 16:05 | disposition home or self-care (01) ==
LOC: HO.HMGAL 16:05
PROVIDERS: PCP Internal Medicine; Visit Provider Registered Nurse Emergency
DX: J30.89 Other allergic rhinitis (principal)
CPT/HCPCS: 95117; 95165